=== PATIENT | male | born 1955 | race Caucasian/White ===

== ENCOUNTER 2020-03-08 08:50 | Inpatient (IN) | payer MEDICARE, BC, SELFPAY ==
[2020-03-08] VITALS (98 sets, daily range): BP systolic 113–188; BP diastolic 74–115; PULSE 68–93; RESP 12–30; TEMP 36.8; O2SAT 85–100; BMI 33.6
--- NOTE | 2020-03-08 08:59 | ECG_ITS ---
[facility] Test Date: 2020-03-08 Pat Name: Thiago Perez Department: Room: 104 Gender: Male Bun Icer: : 1955 Requested By: Radha Chacko Order Number: [id number] Jarred MD: Yahir Ansari M.D. Measurements Intervals [place] Rate: 77 P: 50 VT: 194 QRS: 3 QRSD: 85 T: 55 QT: 373 QTc: 422 Interpretive Statements SINUS RHYTHM WITH OCCASIONAL VENTRICULAR PREMATURE COMPLEXES ANTERIOR MYOCARDIAL INFARCTION , POSSIBLY ACUTE [40+ ms Q WAVE AND/OR ST/T ABNORMALITY IN V3/V4] INFERIOR MYOCARDIAL INFARCTION , OF INDETERMINATE AGE [40+ ms Q WAVE AND/OR ST/T ABNORMALITY IN II/aVF] ACUTE [place] No previous ECG available for comparison Electronically Signed On 03-08-2020 17:32:30 CDT by Yahir Ansari M.D. [id number] f
--- NOTE | 2020-03-08 08:59 | XR_ITS ---
WS: [id number] XR chest 1V portable [id number] REASON FOR EXAM: Chest pain FINDINGS: The heart and mediastinum are within normal limits with minimal calcification of the aortic arch. The lung gann are clear and well aerated. No significant abnormality of the bony thorax is identified. XR/XR chest 1V portable [id number] IMPRESSION: No acute chest abnormality identified.
[2020-03-08] MEDS: heparin 5,000 unit/mL INJ 1 mL 4000 UNIT IVP (09:05)
[2020-03-08 09:07] LABS: Basophils % 0.3 %; Eosinophils # 0.1 10^3/uL (0.0-0.8); Eosinophils % 1.5 %; Hematocrit 46.8 % (42.0-52.0); Hemoglobin 15.3 g/dL (11.7-16.6); Lymphocytes # 1.9 10^3/uL (0.8-4.8); Lymphocytes % 25.4 %; Mean Corpuscular HGB Conc 32.7 g/dL (30.0-36.0); Mean Corpuscular Hemoglobin 26.2 pg (28.0-34.0); Mean Corpuscular Volume 80.1 fL (80-94); Mean Platelet Volume 10.5 fL (7.4-10.4); Monocytes # 0.8 10^3/uL (0.2-0.9); Monocytes % 10.9 %; Neutrophils # 4.52 10^3/uL (1.8-7.7); Neutrophils % 61.6 %; Nucleated Red Blood Cells % 0 %; Platelet Count 237 10^3/cmm (130-400); Red Blood Count 5.84 10^6/uL (4.1-5.3); Red Cell Distribution Width 13.2 % (12.1-15.1); White Blood Count 7.3 10^3/uL (4.0-10.0)
[2020-03-08] MEDS: nitroglycerin drip 50 MG/250 ML PREMIX IV (09:08)
[2020-03-08] MEDS: morphine 4 mg/mL SDV 1 mL IVP ×2 (09:08→09:30)
[2020-03-08] MEDS: clopidogrel 300 mg Tablet 600 MG PO (09:10)
--- NOTE | 2020-03-08 09:18 | XACV_ITS ---
Ht: 170 cm Wt: 100 kg BSA: 2.21 m2 Gender: Male : 1955 Any Known Allergies: Penicillins Exam Priority: Routine Procedure(s): Procedure Description: Diagnostic procedure Procedure Description: PCI procedure Procedure Description: Left Heart Catheterization Procedure Description: Drug Eluting Coronary Stent Procedure Description: PTCA Procedure Description: Coronary Angiography Diagnostic Cath Status: Emergency Diagnostic Findings * Proximal Left Anterior Descending Coronary Artery: 100% thrombotic occlusion, YUMI: 0 flow. * LM has 0% stenosis. * CX has 0% stenosis. * RCA has 0% stenosis. * Coronary angiography shows right dominance. PCI Status: Emergency PCI Indication: STEMI - Immediate PCI for STEMI Interventional Findings * We engaged the left main artery using XB 3.5 guide catheter. 0.014 run-through guidewire was used to cross the occluded segment and was placed on distalLAD. We then predilated the stenosis using a 2.5 x 12 mm semi-compliant balloon. This was followed by placement of 3.0 into 12 mm resolute Mele drug-eluting stent. We postdilated the stent using a 3.25 x 8 mm NC balloon. At this time final angiogram was performed that showed YUMI-3 flow, excellent expansion of the stent and no residual stenosis. At this time guidewire and guide catheter were removed. He left the Self Pay Collector in a stable condition.. * Proximal Left Anterior Descending Coronary Artery: 100% stenosis treated with AB TREK 2.50X12 RX BALLOON, YA Jernigan MELE 3.0X15 SALUD, and YA AZAR EUPHORA RX 3.51I99UE BALLOON. 0% residual stenosis, YUMI: 3 flow. Conclusions 1. Total thrombotic occlusion of proximal LAD with one vessel disease. 2. Proximal Left Anterior Descending Coronary Artery was treated with two Balloon and Drug Eluting Stent. Recommendations * Admit to stepdown unit. * Aggrastat for 4 hours. * Continue aspirin and Plavix for at least 1 year. * High intensity statin therapy. * Lisinopril and beta-trudy therapy. * Order echocardiogram. * Cardiac rehab. Interventional RX Recommendation: PCI w/o planned CABG Diagnostic RX Recommendation: PCI w/o planned CABG Anticoagulation: Heparin Pressures Phase:Rest AO : 145 / 87 ( 114 ) @ 4:44:00 AM 152 / 92 ( 120 ) @ 4:48:00 AM 119 / 67 ( 98 ) @ 4:54:00 AM 133 / 80 ( 106 ) @ 4:55:00 AM 129 / 69 ( 95 ) @ 4:56:00 AM 92 / 53 ( 72 ) @ 5:01:00 AM 115 / 75 ( 93 ) @ 5:07:00 AM 140 / 79 ( 106 ) @ 5:10:00 AM 137 / 78 ( 97 ) @ 5:10:00 AM LV : 153 / -2 / @ 5:10:00 AM 153 / -2 / @ 5:10:00 AM Valves Phase:DefaultPhase AV : 13.0 @ 10:17:07 AM AV Mean Gradient: 22.0 @ 10:17:07 AM Clinical Evaluation EBL: 5mL-10mL Procedural Details Pre-Procedure Time Out. Identified patient by full name and date of as verbalized by the patient/guarantor. Does the consent match the physician's order: N/A Emergent; Informed Consent not obtained due to time critical life threat. Accurate & Complete Informed Consent: N/A Emergent; Informed Consent not obtained due to time critical life threat. Inpatient/Outpatient History & Physical on Chart: N/A Emergent; Informed Consent not obtained due to time critical life threat. If H&P is completed, is and addenduem needed: N/A Emergent; Informed Consent not obtained due to time critical life threat; If yes, is the addendum complete: N/A Emergent; Informed Consent not obtained due to time critical life threat. Visualize and Verify Site with Patient/Guarantor: N/A. Relevant Radiology Images available: N/A Emergent; Informed Consent not obtained due to time critical life threat. Pre-op teaching completed and patient verbalized understanding. The risks, benefits, and alternatives of sedation and/or procedure were discussed by physician. The patient agrees to continue. Procedure started. PERRLA. Strong, equal hand teleservices representative bilaterally. Lungs clear x 5 lobes. IV Fluids: 0.9% NaCl at KVO. 0 mL infused prior to radiographer cardiac catheterization. Oxygen started at 2liters/min via nasal canula. bilateral groins was prepped with chloroprep then draped in the usual sterile fashion. Physician notified. Baseline sample Acquired. HR: 127 BPM. Equipment: 6F - Femoral. Cardiac Cath Pack. ACIST Manifold Kit Model BT 2000. Heparinized Saline (2 units/mL), 1000 mL bag. Kit, Micropuncture. Physician arrived. Physician scrubbed in. Immediate Pre-Procedure Time Out. Correct Patient: Yes; Correct Procedure: Yes; Correct Site: Yes; Correct Patient Position: Yes; Correct Supplies: Yes; Dried Flammable Prep: Yes; Blood Products Available: No;. Lidocaine 1% infiltrated to the left groin. Arterial access obtained with micropuncture set. 6 [place] XB 3.5 guide catheter was inserted over the wire. Multiple views taken of left coronary artery. Runthrough guidewire was advanced through the guide catheter to lesion in the prox LAD. Inflation number : 1 A AB TREK 2.50X12 RX BALLOON was prepped and advanced across the Prox LAD , then inflated to 8 PROSPER for 0:13 seconds. Inflation number: 2 The AB TREK 2.50X12 RX BALLOON was reinflated across the Prox LAD, to 8 PROSPER for 0:07 seconds. Balloon out. Inflation Number : 3 A YA Jernigan MELE 3.0X15 SALUD -Lot Number#[id number] EXP 11-19-2021 was prepped and advanced across the Prox LAD. The stent was deployed at 12 PROSPER for 0:19 seconds. Stent balloon out over wire. Results checked. Patient's family updated. Inflation number : 4 A YA AZAR EUPHORA RX [id number] BALLOON was prepped and advanced across the Prox LAD , then inflated to 16 PROSPER for 0:12 seconds. Inflation number: 5 The MDT NC EUPHORA RX 3.86M81HD BALLOON was reinflated across the Prox LAD, to 16 PROSPER for 0:20 seconds. Balloon out. Wire out. Guide catheter out. A 5 [place] JR4 catheter in over wire. Multiple views taken of right coronary artery. EDP Sample taken: LV 153/-3,20; HR: 85 BPM; SpO2: 96%. Pullback taken: LV 153/-3,20; AO 140/79(106); Mean: 22mmHg, Peak to Peak: 13mmHg, SEP: 7sec/min; HR: 81 BPM; SpO2: 98%. Catheter out. A Suture was successful obtaining hemostatsis at the Left Femoral artery insertion site. Sheath(s) sutured into position with 2-0 silk and sterile 4x4's and Op-site applied over the site. No oozing or signs and symptoms of hematoma noted. Arterial sheath flushed and connected to tranducer and pressure bag with heparinized saline. PERRLA. Strong, equal hand teleservices representative bilaterally. No VTE prophylaxis required. Fluoro: 10:20. Contrast type used: Omnipaque 300 mgI/mL, 500 mL bottle. [id number]. Post-op diagnosis: STEMI. Complications: none. Estimated blood loss: 5mL-10mL. Procedure completed. Patient transferred by bed to CPRU. PCI Indication: STEMI. [facility] Clinical Fraility Score: 2: Well. Self Pay Collector Indications: ACS <= 24 hours. Chest Pain Symptom Assessment: Typical Angina Symptoms. Cardiovascular Instability: No. Medication's Wasted: Lidocaine 1% = 10 mL. Medication's Wasted: Heparin = 2000 units. Total IV fluids: 200 mL. Vital chart was stopped. Access Site Site: Left Femoral artery Sheath Size: 6 Fr Hemostasis Method: Suture Hemostasis Success: Successful Procedure Medications Start: 9:39 AM Stop: 9:39 AM Medication: Versed Amount: 1 mg Route: I.V. Start: 9:39 AM Stop: 9:39 AM Medication: Fentanyl Amount: 50 mcg Route: I.V. Start: 9:40 AM Stop: 9:40 AM Medication: Versed Amount: 1 mg Route: I.V. Start: 9:43 AM Stop: 9:43 AM Medication: Heparin Amount: 5000 units Route: I.V. Start: 9:43 AM Stop: 9:43 AM Medication: Fentanyl Amount: 50 mcg Route: I.V. Start: 9:52 AM Stop: 9:52 AM Medication: Heparin Amount: 2000 units Route: I.V. Start: 9:57 AM Stop: 9:57 AM Medication: 0.9% Saline Amount: 100 ml Route: I.V. bolus Start: 10:00 AM Stop: 10:00 AM Medication: Aggrastat 12.5 mg/250 mL Amount: 50 ml Route: I.V. bolus Start: 10:03 AM Stop: 10:03 AM Medication: Aggrastat 12.5 mg/250 mL Amount: 18 ml/hr Route: I.VDalila kwan I, the attending physician, have reviewed and verified all procedure medications. Yes, all medications given per verbal order Report Signatures Finalized by Yahir Ansari MD on 03/12/2020 06:00 PM
--- NOTE | 2020-03-08 09:20 | ED_ITS ---
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 In talking to him further he has had different varying episodes of less intensity over the last 5 days. Including one episode that lasted for 5 hours. Today the intensity was much greater he rates the pain at an 8-9 of 10 at its worst after immediate interventions when we first seen him it was down to a 6. He did take an aspirin prior to arrival he has acute ST elevation changes on his initial EKG and a STEMI alert was immediately called. Patient denies being diabetic he has no history of hypertension or hyperlipidemia he is not on any regular prescription medications he is not recently been ill. No diarrhea no sinus congestion cough shortness of breath wheezing he is not been around anyone he is aware of that as it COVID. MD complaint: chest pain Onset (ago): minute(s) (This episode began this morning about an hour to an hour and a half before arrival.) Timing of current episode: constant Prior episodes: Yes Onset: during exertion Pain location: substernal Pain radiation: right arm and left arm Severity: moderate Associated symptoms: Reports diaphoresis, dyspnea, leg edema, nausea and sense of impending doom; Deny abdominal pain, fever(s), palpitations or vomiting Treatment prior to arrival: none Review of Systems Const: Reports: diaphoresis; Denies: fever(s) ENMT: Denies: throat pain, ear or mastoid pain, nasal discharge or nasal congestion Card: Denies: palpitations Resp: Reports: dyspnea GI: Reports: nausea; Denies: abdominal pain or vomiting : Denies: flank pain, dysuria, urinary frequency or urinary urgency Skin/Breast: Denies: rash or pruritus [facility] ED PFSH: Medical History No significant past medical history Surgical History H/O umbilical hernia repair Physical Exam Const: COMMON NORMALS: no acute distress GENERAL APPEARANCE: cooperative and comfortable ORIENTATION/CONSCIOUSNESS: Yes awake, Yes oriented to person, Yes oriented to place and Yes oriented to time HENMT: COMMON NORMALS: normocephalic, atraumatic and hearing grossly normal bilaterally HEAD & SCALP: normocephalic and atraumatic Eye: COMMON NORMALS: Equal, round and reactive pupils present, EOMs intact bilaterally, conjunctivae normal and no scleral icterus CONJUNCTIVA: Yes conjunctivae normal PUPIL: Yes Equal, round and reactive pupils present Neck/C-Spine: COMMON NORMALS: full ROM, no lymphadenopathy, supple and no JVD Lymph: LYMPHATIC: no lymphadenopathy noted and no lymphedema noted Resp: COMMON NORMALS: normal respiratory effort, No retractions and No use of accessory muscles AUSCULTATION: crackles Laterality: bilateral (Bases) and posterior Cardio: COMMON NORMALS: no JVD, regular rate, regular rhythm and No murmurs present (Cardio) RATE: regular rate RHYTHM: regular rhythm GI: COMMON NORMALS: Soft to palpation and No hepatosplenomegaly present AUSCULTATION: Yes normoactive bowel sounds PALPATION: Yes Soft to palpation, No Tenderness to palpation present (GI), No Guarding due to palpation present (GI) and Yes No hepatosplenomegaly present Extremity: COMMON NORMALS: normal to inspection, capillary refill normal, no calf tenderness and no pedal edema GENERAL: Yes edema (Mild lower extremity) Neuro: SENSORIUM/ORIENTATION: Yes oriented to person, Yes oriented to place and Yes oriented to time Skin: COMMON NORMALS: no rashes or lesions noted GENERAL SKIN EXAM: no rashes or lesions noted Course Vital Signs: Vital signs: Vital Signs Temperature 98.5 F 03/09/20 07:28 Pulse Rate 79 03/09/20 07:28 Respiratory Rate 21 H 03/09/20 07:28 Blood Pressure 145/87 03/09/20 07:28 Pulse Oximetry 93 03/09/20 07:28 MDM - Chest Pain MDM Narrative: Medical decision making narrative: EKG on arrival shows anterior lateral ST elevation DC. There is a few small inferior changes but not significant. Patient was given morphine heparin Plavix he previously taken aspirin and started on IV nitro drip and also her oxygen was applied. Dr. Ansari was in a case when the STEMI was called the EKG was brought to him at the bedside he reviewed it and agreed that it was a STEMI we had already initiated medications listed above and prepped for the Support Team Member. While we were still finishing our prep Dr. Ansari was able to come to the bedside and discussed the procedure with the patient. Lab Data: Labs: Lab Results 03/08/20 03/08/20 03/08/20 Range/Units 09:00 09:00 09:00 WBC 7.3 (4.0-10.0) 10^3/ uL RBC 5.84 H (4.1-5.3) 10^6/u L Hgb 15.3 (11.7-16.6) g/dL Hct 46.8 (42.0-52.0) % MCV 80.1 (80-94) fL MCH 26.2 L (28.0-34.0) pg MCHC 32.7 (30.0-36.0) g/dL RDW 13.2 (12.1-15.1) % Plt Count 237 (130-400) 10^3/c mm MPV 10.5 H (7.4-10.4) fL Neut % (Auto) 61.6 % Lymph % (Auto) 25.4 % Branch % (Auto) 10.9 % Eos % (Auto) 1.5 % Baso % (Auto) 0.3 % Neut # (Auto) 4.52 (1.8-7.7) 10^3/u L Lymph # (Auto) 1.9 (0.8-4.8) 10^3/u L Branch # (Auto) 0.8 (0.2-0.9) 10^3/u L Eos # (Auto) 0.1 (0.0-0.8) 10^3/u L Baso # (Auto) 0.0 (0.0-0.1) 10^3/u L Nucleated RBC % (a uto) 0 % Nucleated RBCs # 0.0 /100WBC PT 12.20 (12.1-14.9) SECO NDS INR 0.88 (0.8-1.2) APTT 26.0 (23.9-36.7) SECO NDS Sodium 139 (136-145) mmol/L Potassium 4.2 (3.5-5.1) mmol/L Chloride 104 (98-107) mmol/L Carbon Dioxide 24 (22-29) mmol/L Anion Gap 15.2 (5-19) BUN 15 (8-23) mg/dL Creatinine 1.0 (0.7-1.2) mg/dL GFR Calculation 75.0 L (90-130) mL/min Glucose 143 H (65-115) mg/dL Calculated Osmolal ity 291 (285-295) mOsm/k g Calcium 9.6 (8.5-10.5) mg/dL Total Bilirubin 0.7 (0.15-1.2) mg/dL AST 27 (0-40) U/L ALT 34 (0-41) U/L Alkaline Phosphata se 97 (40-130) IU/L Troponin T Baselin e (0-15) ng/L NT-Pro-B Natriuret Pep 97 (0-125) pg/mL Total Protein 7.2 (6.6-8.7) g/dL Albumin 4.5 (3.5-5.2) g/dL Globulin 2.7 (1.3-4.6) g/dL 03/08/20 Range/Units 09:00 WBC (4.0-10.0) 10^3/ uL RBC (4.1-5.3) 10^6/u L Hgb (11.7-16.6) g/dL Hct (42.0-52.0) % MCV (80-94) fL MCH (28.0-34.0) pg MCHC (30.0-36.0) g/dL RDW (12.1-15.1) % Plt Count (130-400) 10^3/c mm MPV (7.4-10.4) fL Neut % (Auto) % Lymph % (Auto) % Branch % (Auto) % Eos % (Auto) % Baso % (Auto) % Neut # (Auto) (1.8-7.7) 10^3/u L Lymph # (Auto) (0.8-4.8) 10^3/u L Branch # (Auto) (0.2-0.9) 10^3/u L Eos # (Auto) (0.0-0.8) 10^3/u L Baso # (Auto) (0.0-0.1) 10^3/u L Nucleated RBC % (a uto) % Nucleated RBCs # /100WBC PT (12.1-14.9) SECO NDS INR (0.8-1.2) APTT (23.9-36.7) SECO NDS Sodium (136-145) mmol/L Potassium (3.5-5.1) mmol/L Chloride (98-107) mmol/L Carbon Dioxide (22-29) mmol/L Anion Gap (5-19) BUN (8-23) mg/dL Creatinine (0.7-1.2) mg/dL GFR Calculation (90-130) mL/min Glucose (65-115) mg/dL Calculated Osmolal ity (285-295) mOsm/k g Calcium (8.5-10.5) mg/dL Total Bilirubin (0.15-1.2) mg/dL AST (0-40) U/L ALT (0-41) U/L Alkaline Phosphata se (40-130) IU/L Troponin T Baselin e 132 H* (0-15) ng/L NT-Pro-B Natriuret Pep (0-125) pg/mL Total Protein (6.6-8.7) g/dL Albumin (3.5-5.2) g/dL Globulin (1.3-4.6) g/dL Discharge Plan Discharge Patient Disposition: Admitted As Inpatient Admit Provider: Yahir Ansari Clinical Impression: ST elevation myocardial infarction (STEMI) Condition: Stable Discharge Date/Time: 03/08/20 09:38 Coding Level of Care Code ED Dialer for Markos Fwd Exam Comprehensive
[2020-03-08 09:21] LABS: INR 0.88 (0.8-1.2)
[2020-03-08 09:31] LABS: Troponin(5th) Baseline 132 ng/L (0-15)
[2020-03-08 09:34] LABS: Alanine Aminotransferase 34 U/L (0-41); Albumin Level 4.5 g/dL (3.5-5.2); Alkaline Phosphatase 97 IU/L (40-130); Anion Gap 15.2 (5-19); Aspartate Amino Transferase 27 U/L (0-40); Blood Urea Nitrogen 15 mg/dL (8-23); Calcium 9.6 mg/dL (8.5-10.5); Carbon Dioxide 24 mmol/L (22-29); Chloride 104 mmol/L (98-107); Globulin 2.7 g/dL (1.3-4.6); Glucose 143 mg/dL (65-115); NT Pro B Type Natriuretic Pept 97 pg/mL (0-125); Osmolality Calculated 291 mOsm/kg (285-295); Potassium 4.2 mmol/L (3.5-5.1); Sodium 139 mmol/L (136-145); Total Bilirubin 0.7 mg/dL (0.15-1.2); Total Protein 7.2 g/dL (6.6-8.7)
--- NOTE | 2020-03-08 09:35 | PM.HP ---
Providers/Chief Complaint Admitting Physician: Yahir Ansari MD Primary Care Provider: Romie Rboles MD Chief Complaint: CHEST PAIN, PAIN DOWN R ARM History of Present Illness Thiago Perez is a 64 year old male with no significant past medical history and not on any medications presented to emergency room with 2 to 3 hours of chest pain. 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 It was substernal pressure. Intensity was 8/10. There was radiation to left arm. He also complained of shortness of breath associated with chest pain. He took aspirin before coming to hospital. No aggravating or relieving factors were noted. According to the patient for the last 5 days he has been having on and off chest discomfort including one episode which lasted for about 5 hours a few days ago. His mom recently and he was very stressed because of that. Patient denies smoking. EKG performed in the hospital showed ST elevations in the anterior and anterolateral leads. STEMI alert was activated and patient was emergently taken to the Astrophysics Professor. Patient was loaded with Plavix and heparin bolus. Cardiac cath showed thrombotic occlusion of proximal LAD and he underwent successful revascularization with drug-eluting stent x1. Patient has no documented history of hypertension however his blood pressure was significantly high. Review of Systems Narrative: CONSTITUTIONAL: No fever chills weight loss or gain or night sweats. [] HEENT: Normocephalic, atraumatic.[] RESPIRATORY: No cough, sputum, hemoptysis or wheezing.[] CARDIOVASCULAR: Severe chest pain and shortness of breath, PND, orthopnea, no lower extremity edema, presyncope or syncope. [] GI: no nausea vomiting diarrhea. [] MANAGER USER INTERFACE: No numbness, tingling, weakness or loss of function in any part of the body. [] MUSCULOSKELETAL: No knee or joint pain or rashes. [] Medications/Allergies Allergies Allergy/AdvReac Type Severity Reaction Status Date / Time Penicillins Allergy Unknown Verified 03/08/20 09:03 PFSH Acute PFSH: Medical History No significant past medical history Surgical History H/O umbilical hernia repair Vitals/I&O/Wt Last Vital Signs Pulse 85 03/08/20 08:54 Resp 15 03/08/20 09:08 BP 188/115 03/08/20 08:54 Pulse Ox 99 03/08/20 09:08 Weight last 48 hrs Weight 215 lb Physical Exam Narrative: EXAM NARRATIVE: GENERAL: Patient is alert, awake and oriented x3. [] NECK: No jugular vein distension. [] HEENT: No cyanosis. No icterus. No pallor. [] HEART: Regular S1 and S2. No murmur, rub or gallop. [] LUNGS: Mild crackles in the bases. [] ABDOMEN: Soft, nontender and nondistended. Positive bowel sounds. No guarding, rebound or tenderness. [] CENTRAL NERVOUS SYSTEM: Grossly nonfocal. [] EXTREMITIES: Lower extremities with no edema bilaterally. Pulses palpable in the lower extremities, both dorsalis pedis and posterior tibial. [] Data : 03/08/20 09:00 03/08/20 09:00 A&P Assessment and plan (1) ST elevation myocardial infarction (STEMI): Status: Acute (2) Hypertension: Status: Acute Patient had acute anterior wall ST elevation [place]. He is status post successful revascularization with drug-eluting stent x1 to proximal LAD. Transfer to cardiac stepdown unit Continue aspirin and Plavix. Aggrastat drip for 4 hours. Order echocardiogram. High intensity statin therapy. We will initiate beta-trudy and BETTY inhibitor today. Cardiac rehab referral. Attestations Medical Necessity Statement*: Care expected to cross 2 midnights. Patient is status post acute ST elevation myocardial infarction and revascularization with drug-eluting stent x1. Coding Level of Care Code Acute Scroll Machine Operator for Markos Moffett Diagnoses ST elevation myocardial infarction (STEMI) I21.3 Hypertension I10
--- NOTE | 2020-03-08 10:59 | ECG_ITS ---
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 Measurements Intervals [place] Rate: 76 P: 51 MT: 188 QRS: 1 QRSD: 103 T: 49 QT: 371 QTc: 418 Interpretive Statements SINUS RHYTHM ANTERIOR MYOCARDIAL INFARCTION , POSSIBLY ACUTE [40+ ms Q WAVE AND/OR ST/T ABNORMALITY IN V3/V4] INFERIOR MYOCARDIAL INFARCTION , OF INDETERMINATE AGE [40+ ms Q WAVE AND/OR ST/T ABNORMALITY IN II/aVF] ACUTE [place] Compared to ECG 03/08/2020 08:56:22 Ventricular premature complex(es) no longer present Myocardial infarct finding still present Electronically Signed On 03-08-2020 17:46:06 CDT by Yahir Ansari M.D. [id number]
--- NOTE | 2020-03-08 11:18 | USCV_ITS ---
Thiago Perez Age: 64 Gender: M : 1955 Exam Date: 03/08/2020 14:20 Ordering Phys: Yahir Ansari M.D ([email or web address]) Technologist: Dex Sanchez [place] [facility] [place]: post stemi BP: 133 / 82 HR: 79 Rhythm: Sinus Technical Quality: Adequate MEASUREMENTS (Male / Female) Normal Values 2D ECHO LV Diastolic Diameter PLAX 4.5 cm 4.2 - 5.9 / 3.9 - 5.3 cm LV Systolic Diameter PLAX 3.0 cm IVS Diastolic Thickness 0.9 cm 0.6 - 1.0 / 0.6 - 0.9 cm IVS Systolic Thickness 1.3 cm LVPW Diastolic Thickness 1.4 cm 0.6 - 1.0 / 0.6 - 0.9 cm LVPW Systolic Thickness 1.4 cm LVOT Diameter 2.0 cm LV Ejection Fraction 2D Teich 60.8 % LV Ejection Fraction MOD 2C 60.3 % LV Ejection Fraction 2C AL 60.7 % LA Diameter 3.6 cm M-MODE LV Diastolic Diameter MM 5.9 cm 4.2 - 5.9 / 3.9 - 5.3 cm LV Systolic Diameter MM 4.1 cm LV Ejection Fraction MM Teich 58.8 % IVS Diastolic Thickness MM 1.0 cm 0.6 - 1.0 / 0.6 - 0.9 cm IVS Systolic Thickness MM 1.6 cm LVPW Diastolic Thickness MM 1.2 cm 0.6 - 1.0 / 0.6 - 0.9 cm LVPW Systolic Thickness MM 1.6 cm RV Diastolic Diameter MM 1.4 cm Aortic Annulus Diameter 3.9 cm LA Ao Ratio MM 0.9 MV E Point Septal Separation 0.6 cm DOPPLER AV Peak Velocity 130.0 cm/s LVOT Peak Velocity 83.0 cm/s AV Area Cont Eq vti 2.0 cm squared AV Area Cont Eq pk 2.1 cm squared MV Area PHT 5.0 cm squared Mitral E to A Ratio 1.0 MV E' Velocity 33.5 cm/s Mitral E to MV E' Ratio 12.2 Mitral E to LV E' Lateral Ratio 10.9 Mitral E to LV E' Septal Ratio 14.2 TR Peak Velocity 130.0 cm/s TR Peak Gradient 6.8 mmHg TV Peak E Velocity 58.0 cm/s Right Atrial Pressure 3.0 mmHg Pulmonary Artery Systolic Pressu 9.8 mmHg PV Peak Velocity 141.0 cm/s FINDINGS Left Ventricle Normal left ventricular size and wall thickness. LV systolic function is mildly reduced with EF of 40 to 45%. Mid to apical anteroseptal wall has mild to moderate hypokinesis. Apical wall is severely hypokinetic. Anterior, apical inferior and inferoseptal irving have mild hypokinesis. Normal left ventricular wall thickness. Diastolic function is abnormal. Right Ventricle The right ventricle is normal in size and function. Right Atrium The right atrium is normal in size. Left Atrium The left atrium is normal in size. Mitral Valve Structurally normal mitral valve without significant stenosis or prolapse. There is no mitral regurgitation. Aortic Valve Aortic valve is not well visualized. However no difficult stenosis or regurgitation is noted. Tricuspid Valve Not well visualized however no significant regurgitation.. Insufficient TR jet to calculate RVSP. Pulmonic Valve Not well visualized. No significant stenosis or regurgitation is noted. Pericardium Normal pericardium without effusion. Aorta Normal ascending aorta dimension. CONCLUSIONS LV systolic function is mildly reduced with EF of 40 to 45% with above-mentioned wall motion abnormalities. His diastolic function is abnormal. Yahir Ansari MD (Electronically Signed) Final Date: 08 March 2020 18:29 S
--- NOTE | 2020-03-08 11:20 | PC.NURSE ---
Patient to floor from dental laboratory assistant at 1030. 2 nurse verification of insertion site to left groin, asymptomatic, connected to pressure bag. Neurovascular assessment WNL. Patient denies any chest pain at this time. Nitro gtt running at 15 mcgs/min, aggrastat running at 18 ml/hr. Patient educated on activity restrictions and oriented to room and call light, verbalized understanding. No further needs identified at this time. Nurse to continue to monitor. Dr. Ansari contacted via telephone to clarify med orders at 1100. Physician gave order to discontinue nitro gtt. No post cath fluids. Continue aggrastat for 4 hours, discontinue at 1400. Give 25 mg metoprolol now and 5 mg lisinopril now. RBTO. Nurse to continue to monitor.
[2020-03-08] MEDS: metoprolol tartrate 25 mg Tablet PO ×2 (11:43→17:20)
[2020-03-08] MEDS: lisinopril 5 mg Tablet PO (11:43)
[2020-03-08 13:30] LABS: Troponin 5 2HR 7891 ng/L (0-15); Troponin 5 2HR Delta 7759 ABS# (0-10)
--- NOTE | 2020-03-08 13:56 | PC.NURSE ---
Dr. Ansari notified that ptt is 124. Physician gave verbal order to recheck PTT in 2 hours. If less than 45, pull sheath. RBVO. Aggrastat gtt discontinued now.
--- NOTE | 2020-03-08 14:28 | ECG_ITS ---
[facility] Test Date: 2020-03-08 Pat Name: Thiago Perez Department: Room: 104 Gender: Male Fraternity Adviser: : 1955 Requested By: Yahir Ansari Order Number: [id number] Jarred MD: Yahir Ansari M.D. Measurements Intervals [place] Rate: 76 P: 48 NE: 181 QRS: -1 QRSD: 107 T: 53 QT: 398 QTc: 449 Interpretive Statements SINUS RHYTHM ANTERIOR MYOCARDIAL INFARCTION [40+ ms Q WAVE AND/OR ST/T ABNORMALITY IN V3/V4], OF INDETERMINATE AGE INFERIOR MYOCARDIAL INFARCTION [40+ ms Q WAVE AND/OR ST/T ABNORMALITY IN II/aVF], OF INDETERMINATE AGE Compared to ECG 03/08/2020 09:01:01 No significant changes Electronically Signed On 03-08-2020 17:35:53 CDT by Yahir Ansari M.D. [id number]
--- NOTE | 2020-03-08 14:30 | PC.NURSE ---
Dr. Ansari notified that patient is projectile vomiting, approximately 600 ml of undigested food and gastric juices. Patient denies chest pain or shortness of breath. telephone order received to obtain 12 lead EKG stat, administer 4 mg zofran IVP now once and benadryl [address] prn zofran order 2 mg q4hour prn for nausea. RBTO. nurse to continue to monitor.
[2020-03-08] MEDS: diphenhydrAMINE 50 mg/mL SDV 1mL 25 MG IVP (14:41)
[2020-03-08] MEDS: ondansetron 2 mg/ML SDV 2 mL 4 MG IVP (14:42)
[2020-03-08] MEDS: perflutren protein-a microsphr 0.22 mg/mL SDV 3 mL IV (14:45)
[2020-03-08 16:46] LABS: Troponin 5 6HR 8687 ng/L (0-15); Troponin 5 6HR Delta 8555 ng/L (0-12)
--- NOTE | 2020-03-08 17:11 | PC.NURSE ---
Nurse checked with lab regarding timed PTT, no result at this time. Nurse to continue to monitor.
[2020-03-08 17:17] LABS: Partial Thromboplastin Time 37.5 SECONDS (23.9-36.7)
[2020-03-08] MEDS: ondansetron 2 mg/ML SDV 2 mL IVP (17:52)
[2020-03-08] MEDS: fentaNYL 50 mcg/mL INJ 2mL IVP (18:03)
--- NOTE | 2020-03-08 19:14 | PC.NURSE ---
Sheath pulled at 1811 per protocol. Direct pressure held for 20 minutes until hemostasis was achieved. Incision asymptomatic, no hematoma noted. Dressing applied, Nurse to continue to monitor.
--- NOTE | 2020-03-08 19:29 | PC.NURSE ---
ROunding: Patient resting in bed watching TV. Patient R groin dressing is clean dry and intact. No hematoma noted. Patient denies any pain at this time and is alert and oriented.
[2020-03-08] MEDS: atorvastatin 40 mg Tablet 80 MG PO (20:04)
[2020-03-08] MEDS: temazepam 15 mg Capsule PO (22:22)
[2020-03-09] VITALS (7 sets, daily range): BP systolic 96–145; BP diastolic 64–90; PULSE 74–79; RESP 17–25; TEMP 36.7–36.9; O2SAT 93–95
--- NOTE | 2020-03-09 04:51 | ECG_ITS ---
[facility] Test Date: 2020-03-09 Pat Name: Thiago Perez Department: Room: 104 Gender: Male Billet Examiner: : 1955 Requested By: Yahir Ansari Order Number: [id number] Jarred MD: Berlin Herring M.D. Measurements Intervals [place] Rate: 79 P: 45 CO: 197 QRS: 21 QRSD: 92 T: 93 QT: 396 QTc: 455 Interpretive Statements SINUS RHYTHM ANTEROSEPTAL MYOCARDIAL INFARCTION [40+ ms Q WAVE IN V1-V4], PROBABLY RECENT ACUTE [place] Compared to ECG 03/08/2020 14:47:43 No significant changes Electronically Signed On 03-10-2020 21:37:08 CDT by Berlin Herring M.D. [id number]
[2020-03-09 04:56] LABS: Basophils % 0.2 %; Eosinophils % 0.4 %; Hematocrit 44.8 % (42.0-52.0); Hemoglobin 14.3 g/dL (11.7-16.6); Lymphocytes # 1.4 10^3/uL (0.8-4.8); Lymphocytes % 15.2 %; Mean Corpuscular HGB Conc 31.9 g/dL (30.0-36.0); Mean Corpuscular Hemoglobin 25.8 pg (28.0-34.0); Mean Corpuscular Volume 80.7 fL (80-94); Mean Platelet Volume 11.1 fL (7.4-10.4); Neutrophils # 6.55 10^3/uL (1.8-7.7); Neutrophils % 72.8 %; Nucleated Red Blood Cells % 0 %; Platelet Count 233 10^3/cmm (130-400); Red Blood Count 5.55 10^6/uL (4.1-5.3); Red Cell Distribution Width 13.3 % (12.1-15.1)
[2020-03-09 05:22] LABS: Anion Gap 14.1 (5-19); Blood Urea Nitrogen 18 mg/dL (8-23); Calcium 9.4 mg/dL (8.5-10.5); Carbon Dioxide 26 mmol/L (22-29); Chloride 101 mmol/L (98-107); Glucose 113 mg/dL (65-115); Osmolality Calculated 287 mOsm/kg (285-295); Potassium 4.1 mmol/L (3.5-5.1); Sodium 137 mmol/L (136-145)
--- NOTE | 2020-03-09 05:26 | PC.NURSE ---
EKG obtained for rhythm verification. Consulted Dr. Herring about EKG and previous EKG's. Patient is chest pain free at this time. Vitals are stable. No new orders received at this time.
--- NOTE | 2020-03-09 05:58 | PC.NURSE ---
End of shift: Patient R groin is clean dry and intact. No hematoma. Patient remains alert and oriented. Patient is pain free at this time. Denies any further needs at this time.
--- NOTE | 2020-03-09 07:15 | PC.NURSE ---
Patient sitting on side of bed at time of assessment. Patient denies any chest pain or shortness of breath overnight. Incision to left groin asymptomatic, dressing CDI. No needs identified at this time. Nurse to continue to monitor.
[2020-03-09] MEDS: aspirin 81 mg EC Tablet PO (08:47)
[2020-03-09] MEDS: lisinopril 5 mg Tablet PO (08:48)
[2020-03-09] MEDS: clopidogrel 75 mg Tablet PO (08:48)
[2020-03-09] MEDS: pneumococcal (23 valent) SDV 0.5 mL IM (08:50)
[2020-03-09] MEDS: metoprolol tartrate 25 mg Tablet PO ×2 (08:50→17:06)
--- NOTE | 2020-03-09 09:39 | PC.CHAP ---
Pastoral Care Encounter/Spiritual Assessment Type of Contact [] Declined asset protection specialist visit [] Patient/Family/Request visit [] Outpatient visit [] Follow-up visit [] Physician referral [] Code/Alert [x] Routine visit [] Staff referral [] Actively dying [] Patient sleeping [] Family support [] [] Out of room [] Palliative care [] [] Receiving care in room [] Pre-surgical visit [] Trauma [] Long length of stay [] ICU visit [] Other: Relational/Emotional Strength [] Patient feels connected with others/family/visitors/staff [] Distress [] Loneliness/isolation [] Abandonment Spirituality of Patient [] Person of Nanci [] Attends Rastafarian of their Nanci [] Believes in Prayer [] Reads Bible or Yazidi materials [] There are Spiritual issues to be addressed Sanitation Worker Hosing Machinery Interventions [x] Prayer [x] Active listening [x] Non-anxious presence [x] Spiritual/emotional support [] Crisis/trauma care [] Spiritual counseling [] Bereavement support [] Provided bereavement packet [] Provided Bible/devotional materials [] Provided toy/stuffed animal, coloring book to patient or family member [] Provided Communion [] Anointing/[place] [] Salvation [x] Completed spiritual assessment [] Other: Impact on Illness or Injury [] Angry [] Fearful [] Anxious [] Often cries [] Exhaustion [] Unable to work [] Unable to attend jain [] Unable to walk/stand [] Unable to read [] Unable to drive [] Unable to eat/drink [] Unable to sleep [] Unable to be with family [] Patient intubated [] Other: Summary patient feeling much better. received stent Time spent with patient 10 min
--- NOTE | 2020-03-09 14:47 | P.PN_ITS ---
Subjective Subjective: Interval history: Patient is doing well. Any complaints of chest pain, shortness of breath or palpitations. Medications: Reviewed: Yes Vitals/I&O/Wt Last Vital Signs Temp 98.5 F 03/09/20 07:28 Pulse 79 03/09/20 07:28 Resp 21 H 03/09/20 07:28 BP 145/87 03/09/20 07:28 Pulse Ox 93 03/09/20 07:28 03/08/20 03/09/20 03/09/20 22:59 06:59 14:59 Intake Total 360 / 360.683 450 / 810.683 240 / 240 Output Total 375 / 950 Balance 360 / -214.317 75 / -139.317 240 / 240 Weight last 48 hrs Weight 215 lb Physical Exam Narrative: EXAM NARRATIVE: GENERAL: Patient is alert, awake and oriented x3. [] NECK: No jugular vein distension. [] HEENT: No cyanosis. No icterus. No pallor. [] HEART: Regular S1 and S2. No murmur, rub or gallop. [] LUNGS: Clear to auscultate bilaterally. [] ABDOMEN: Soft, nontender and nondistended. Positive bowel sounds. No guarding, rebound or tenderness. [] CENTRAL NERVOUS SYSTEM: Grossly nonfocal. [] EXTREMITIES: Lower extremities with no edema bilaterally. Pulses palpable in the lower extremities, both dorsalis pedis and posterior tibial. [] Data : 03/09/20 04:11 03/09/20 04:11 A&P Assessment and plan (1) ST elevation myocardial infarction (STEMI): Status: Acute (2) Hypertension: Status: Acute Patient had acute anterior wall ST elevation LA. He is status post successful revascularization with drug-eluting stent x1 to proximal LAD performed yesterday Continue aspirin and Plavix. ECHO showed an EF of 40-45% with wall motion abnormalities consistent with the LA High intensity statin therapy. Continue beta trudy and lisinopril Cardiac rehab referral. Patient will likely be discharged home tomorrow Attestations Medical Necessity Statement*: Care expected to cross 2 midnights. Patient is status post revascularization for acute ST elevation LA Coding Level of Care Code Acute Tire Sorter for Markos Moffett Diagnoses ST elevation myocardial infarction (STEMI) I21.3 Hypertension I10
--- NOTE | 2020-03-09 19:14 | PC.NURSE ---
Shift summary Patient had uneventful shift. Patient denies any chest pain, shortness of breath or nausea. Patient has been up ad kumar. Incision to Left groin asymptomatic. Nurse to continue to monitor.
[2020-03-09] MEDS: temazepam 15 mg Capsule PO (20:43)
[2020-03-09] MEDS: atorvastatin 40 mg Tablet 80 MG PO (20:43)
[2020-03-10 04:07] VITALS: BP 108/70; PULSE 81; RESP 20; TEMP 36.7; O2SAT 96
--- NOTE | 2020-03-10 05:28 | PC.NURSE ---
End of shift: Patient has had a uneventful shift. Patient has had no complaints of pain and denies any complaints. Patient remains alert and oriented. Vitals are stable.
--- NOTE | 2020-03-10 08:00 | PC.NURSE ---
pt a/o, sitting up on side of bed. denies and pain or discomfort. states, i feel better than i have in years. pt states, i don't know if i am going to be sent home today, but if i am then i would like to be able to leave so that i can go to the home and view my mother who the night before i came in here. provided condolences and informed pt that i would see what we could do if he was to be d/c'd today. call light with in reach. will continue to monitor and provide support and safety.
[2020-03-10] MEDS: aspirin 81 mg EC Tablet PO (08:28)
[2020-03-10] MEDS: lisinopril 10 mg Tablet PO (08:28)
[2020-03-10] MEDS: metoprolol tartrate 25 mg Tablet PO (08:28)
[2020-03-10] MEDS: clopidogrel 75 mg Tablet PO (08:28)
--- NOTE | 2020-03-10 08:51 | P.DS_ITS ---
Discharge Providers Date of Admission: 03/08/20 10:51 Date of Discharge: March 10, 2020 Attending Provider at Admission: Yahir Ansari M.D Attending Provider at Discharge: Yahir Ansari M.D Primary Care Provider: Romie Robles MD Diagnoses at Discharge Discharge Diagnosis (1) ST elevation myocardial infarction (STEMI): Status: Acute (2) Hypertension: Status: Acute Reason for Visit Reason for Visit: CHEST PAIN, PAIN DOWN R ARM Hospital Course Hospital Course: 65-year-old man with no significant past medical history and not on any medications presented to emergency room with 2 to 3 hours of chest pain. According to the patient for the last 5 days he has been having on and off chest discomfort including one episode which lasted for about 5 hours a few days ago. Patient denies smoking. EKG performed in the hospital showed ST elevations in the anterior and anterolateral leads. STEMI alert was activated and patient was emergently taken to the Information Technology Data Analyst. Patient was loaded with Plavix and heparin bolus. Cardiac cath showed thrombotic occlusion of proximal LAD and he underwent successful revascularization with drug-eluting stent x1. During hospital stay patient did well. His EKG changes resolved. His chest pain resolved and he had no more episodes of chest discomfort. Today he is in stable condition and will be discharged home. He will be on aspirin, Plavix, high intensity statin, beta-trudy and lisinopril. He will follow with our office. Physical Exam Narrative: EXAM NARRATIVE: GENERAL: Patient is alert, awake and oriented x3. [] NECK: No jugular vein distension. [] HEENT: No cyanosis. No icterus. No pallor. [] HEART: Regular S1 and S2. No murmur, rub or gallop. [] LUNGS: Clear to auscultate bilaterally. [] ABDOMEN: Soft, nontender and nondistended. Positive bowel sounds. No guarding, rebound or tenderness. [] CENTRAL NERVOUS SYSTEM: Grossly nonfocal. [] EXTREMITIES: Lower extremities with no edema bilaterally. Pulses palpable in the lower extremities, both dorsalis pedis and posterior tibial. [] Discharge Data Data Completed and Pending: Completed Studies During Hospitalization Category Date Time Status XR chest 1V edilma ble [id number] Urgent Exams 03/08/20 08:59 Completed CV echo wo/w cont rast [id number] Routine Ultrasound 03/08/20 11:18 Completed US/CV paperwork R outine Ultrasound 03/08/20 14:49 Completed Pending at discharge Category Date Time Status ARTISAN PLASTERER request for service Routin e Exams 03/08/20 09:18 Taken Vitals: Last Vital Signs Temp 98.0 F 03/10/20 04:07 Pulse 81 03/10/20 04:07 Resp 20 H 03/10/20 04:07 BP 108/70 03/10/20 04:07 Pulse Ox 96 03/10/20 04:07 Discharge Plan Discharge Patient Disposition: Home Condition: Stable Prescriptions: New atorvastatin 40 mg Tablet 80 mg PO BEDTIME Qty: 90 RF: 3 clopidogrel 75 mg Tablet 75 mg PO DAILY Qty: 90 RF: 3 aspirin 81 mg Tablet,Delayed Release (Dr/Ec) 81 mg PO DAILY Qty: 90 RF: 3 lisinopril 10 mg Tablet 10 mg PO DAILY Qty: 90 RF: 3 metoprolol tartrate 25 mg Tablet 25 mg PO BID Qty: 120 RF: 3 No Action No Known Home Medications RF: 0 Discharge Orders: Discharge Order (Routine); Ordered 03/10/20 Ordered By: Yahir Ansari Referrals: Yahir Ansari M.D [Physician] - 1 month (Please follow-up with Dr. Ansari on at 3:45p.m. If you have any questions or graciela to reschedule. Please call ) Aliyah Sapp FNP [Nurse Practitioner] - 7-10 days (Please follow-up with Aliyah Sapp on at 9:30a.m. If you have any questions or need to reschedule. Please call ) Discharge Diet: Cardiac Patient Instructions: Metoprolol (By mouth), Lisinopril (By mouth), Aspirin (By mouth), Atorvastatin (By mouth), Clopidogrel (By mouth), Myocardial Infarction (DC), Left Heart Catheterization (DC), Coronary Angioplasty (DC), Hypertension (DC), Post Angiogram Home Care Instructions Activity Restrictions/Additional Instructions: Please do not lift heavier than 5 pounds of weight for the next 5 days. Discharge Date/Time: 03/10/20 11:15 Discharge Attestations Time Spent in Discharge Care*: greater than 30 min Quality Metrics Clinical Quality Measures During this hospital stay, did patient experience: None Coding Level of Care Code Acute Cigarette Making Examiner for Chg Fwd Diagnoses ST elevation myocardial infarction (STEMI) I21.3 Hypertension I10
[2020-03-10 10:05] VITALS: BP 108/70; PULSE 81; RESP 20; TEMP 36.7; O2SAT 96
--- NOTE | 2020-03-10 11:15 | PC.NURSE ---
provide d/c instructions with discussion. pt verbalized understanding. family on hospital grounds to picking belt operator. no s/s of acute distress noted. provided card with stent information. out to pov per w/c with nurses aide.
== END 2020-03-10 11:15 | disposition home or self-care (01) | DRG 247 ==
LOC: ER 08:58 → CCL 09:17 → CSU 19:10
PROVIDERS: Nurse Practitioner Family; Admitting Provider Internal Medicine; Family Provider Family Medicine; PCP Family Medicine; Visit Provider Internal Medicine
PROC: 027034Z Dilation of Coronary Artery, One Artery with Drug-eluting Intraluminal Device, Percutaneous Approach (ICD-10-PCS; principal; 2020-03-08 09:00)
PROC: 027034Z Dilation of Coronary Artery, One Artery with Drug-eluting Intraluminal Device, Percutaneous Approach (ICD-10-PCS; 2020-03-08 09:00)
DX: I21.09 ST elevation (STEMI) myocardial infarction involving other coronary artery of anterior wall (principal); I10 Essential (primary) hypertension
CPT/HCPCS: 12345; 36415; 71045; 80048; 80053; 83880; 84484; 85025; 85610; 85730; 90471; 90732; 93005; 93458; 96375; 99283; C1725; C1753; C1769; C1874; C1887; C1894; C8929; C9600; C9606; J1200; J1644; J2250; J2270; J2405; J3010; J3246; J7030; J7040; Q9956; Q9967

== ENCOUNTER → 2020-03-17 10:50 | Outpatient (BNVA) | payer MEDICARE, BC, SELFPAY | PROVIDERS: Family Provider Family Medicine; PCP Family Medicine; Visit Provider Nurse Practitioner Family | DX: I25.10 Atherosclerotic heart disease of native coronary artery without angina pectoris (principal) | CPT/HCPCS: 80048 ==

== ENCOUNTER 2020-04-04 12:50 | Outpatient (RCR) | payer MEDICARE, BC, SELFPAY | END 2020-05-03 23:59 | disposition home or self-care (01) | LOC: CR 12:50 | PROVIDERS: Family Provider Family Medicine; PCP Family Medicine; Referring Provider Internal Medicine; Visit Provider Internal Medicine | DX: Z95.5 Presence of coronary angioplasty implant and graft (principal) | CPT/HCPCS: 93798 ==

== ENCOUNTER 2020-05-04 11:37 | Outpatient (RCR) | payer MEDICARE, BC, SELFPAY | END 2020-06-03 23:59 | disposition home or self-care (01) | LOC: CR 11:37 | PROVIDERS: Family Provider Family Medicine; PCP Family Medicine; Referring Provider Internal Medicine; Visit Provider Internal Medicine | DX: Z95.5 Presence of coronary angioplasty implant and graft (principal) | CPT/HCPCS: 93798 ==

== ENCOUNTER 2020-06-07 10:48 | Outpatient (RCR) | payer MEDICARE, BC, SELFPAY | END 2020-07-04 23:59 | disposition home or self-care (01) | LOC: CR 10:48 | PROVIDERS: Family Provider Family Medicine; PCP Family Medicine; Referring Provider Internal Medicine; Visit Provider Internal Medicine | DX: Z95.5 Presence of coronary angioplasty implant and graft (principal) | CPT/HCPCS: 93798 ==

== ENCOUNTER 2020-07-06 09:58 | Outpatient (RCR) | payer MEDICARE, BC, SELFPAY | END 2020-08-01 23:59 | disposition home or self-care (01) | LOC: CR 09:58 | PROVIDERS: Family Provider Family Medicine; PCP Family Medicine; Referring Provider Internal Medicine; Visit Provider Internal Medicine | DX: Z95.5 Presence of coronary angioplasty implant and graft (principal) | CPT/HCPCS: 93798 ==

== ENCOUNTER 2020-08-05 08:43 | Outpatient (RCR) | payer SELFPAY | END 2020-09-01 23:59 | disposition home or self-care (01) | LOC: CR 08:43 | PROVIDERS: Family Provider Family Medicine; PCP Family Medicine; Referring Provider Internal Medicine; Visit Provider Internal Medicine | DX: Z95.5 Presence of coronary angioplasty implant and graft (principal) ==

== ENCOUNTER 2020-10-04 09:00 | Outpatient (RCR) | payer SELFPAY | END 2020-11-01 23:59 | disposition home or self-care (01) | LOC: CR 09:00 | PROVIDERS: Family Provider Family Medicine; PCP Family Medicine; Referring Provider Internal Medicine; Visit Provider Internal Medicine | DX: Z95.5 Presence of coronary angioplasty implant and graft (principal) ==

== ENCOUNTER → 2020-10-08 10:31 | Outpatient (BNVA) | payer MEDICARE, BC, SELFPAY | PROVIDERS: Family Provider Family Medicine; PCP Family Medicine; Visit Provider Internal Medicine | DX: I25.119 Atherosclerotic heart disease of native coronary artery with unspecified angina pectoris (principal); E78.5 Hyperlipidemia, unspecified | CPT/HCPCS: 80061 ==

== ENCOUNTER → 2021-10-07 09:23 | Outpatient (BNVA) | payer MEDICARE, BC, SELFPAY | PROVIDERS: Family Provider Family Medicine; PCP Family Medicine; Visit Provider Internal Medicine | DX: I25.119 Atherosclerotic heart disease of native coronary artery with unspecified angina pectoris (principal); E78.5 Hyperlipidemia, unspecified; I10 Essential (primary) hypertension | CPT/HCPCS: 99214 ==

== ENCOUNTER 2021-10-10 10:59 | Outpatient (CLI) | payer MEDICARE, BC, SELFPAY ==
[2021-10-10 12:30] LABS: Anion Gap 15.5 (5-19); Blood Urea Nitrogen 19 mg/dL (8-23); Calcium 9.8 mg/dL (8.5-10.5); Carbon Dioxide 24 mmol/L (22-29); Chloride 105 mmol/L (98-107); Chol HDL Ratio 4.13 mg/dL (1.0-5.00); Cholesterol 124 mg/dL (0-200); Glomerular Filtration Rate 84.2 mL/min (90-130); Glucose 95 mg/dL (65-115); HDL Cholesterol 30 mg/dL (60-100); LDL Cholesterol Calculated 74 mg/dL (50-129); LDL HDL Ratio 2.47 RATIO (0.00-3.22); NT Pro B Type Natriuretic Pept 72 pg/mL (0-125); Osmolality Calculated 292 mOsm/kg (285-295); Potassium 4.5 mmol/L (3.5-5.1); Sodium 140 mmol/L (136-145); Triglycerides 100 mg/dL (0-150)
== END 2021-10-10 11:00 | disposition home or self-care (01) ==
PROVIDERS: PCP Family Medicine; Visit Provider Internal Medicine
DX: I25.10 Atherosclerotic heart disease of native coronary artery without angina pectoris (principal); E78.5 Hyperlipidemia, unspecified; I10 Essential (primary) hypertension
CPT/HCPCS: 80048; 80061; 83880

== ENCOUNTER → 2022-06-13 11:43 | Outpatient (BNVA) | payer MEDICARE, BC, SELFPAY | PROVIDERS: PCP Family Medicine; Visit Provider Internal Medicine Cardiovascular Disease | DX: I25.119 Atherosclerotic heart disease of native coronary artery with unspecified angina pectoris (principal); E78.5 Hyperlipidemia, unspecified; I10 Essential (primary) hypertension | CPT/HCPCS: 99213 ==

== ENCOUNTER → 2023-01-03 15:22 | Outpatient (BNVA) | payer MEDICARE, BC, SELFPAY | PROVIDERS: PCP Family Medicine; Visit Provider Internal Medicine | DX: I10 Essential (primary) hypertension (principal); I25.119 Atherosclerotic heart disease of native coronary artery with unspecified angina pectoris; E78.5 Hyperlipidemia, unspecified | CPT/HCPCS: 99214 ==

== ENCOUNTER 2023-03-29 08:47 | Outpatient (CLI) | payer MEDICARE, BC, SELFPAY ==
[2023-03-29 09:29] VITALS: BMI 34.4
--- NOTE | 2023-03-29 09:31 | NMCV_ITS ---
NM payton perf SPECT r/s* [id number] Thiago Perez Age: 68 Gender: M : 1955 Exam Date: 03/29/2023 10:14 Ordering Phys: Romie Robles MD Technologist: MARGARITA Quevedo Exam Location: [facility] Indications: ATHEROSCLEROTIC HEART DISEASE STRESS TEST Please see separate stress test report in [facility] for full findings IMAGE PROTOCOL Rest/Stress 1 Lexiscan Day Radiopharmaceutical Dose (mCi) Administration Site Administered by Rest: Tc-99m 11.0 IV Tosha Rhoades PLANT MANAGER Sestamibi Stress:Tc-99m 32.4 IV Tosha Rhoades, PLANT MANAGER Sestamibi Rest: 29-Mar-2023 60 Discovery 630 Stress: 29-Mar-2023 30 Discovery 630 0.4mg Lexiscan. Images obtained in supine and prone position. SPECT RESULTS Technical Quality: Excellent Raw Data Analysis: Normal Image Corrections: No attenuation or motion correction applied Summed Stress Score: 4 Summed Rest Score: 5 Summed Difference Score: 0 PERFUSION FINDINGS Small size perfusion abnormality of mild severity of apical inferior, apical septal and apical irving on rest and stress images. FUNCTIONAL RESULTS (calculated via Gated SPECT) Stress Image LV EF (%): 68 Stress EDV (mL):85 TID: 1.02 Stress ESV (mL):27 FUNCTIONAL FINDINGS: The left ventricle is normal in size. Transient Ischemia Dilatation of 1. The left ventricular ejection fraction is normal with a value of 68%. There is normal left ventricular wall thickening. Normal end-diastolic end-systolic volumes. IMPRESSIONS 1. Small sized fixed perfusion abnormality of mild severity of apical inferior, apical septal and apical irving. 2. This may present old myocardial infarction in left anterior descending artery territory with no coronary ischemia. 3. EKG portion of the study will be reported separately. 4. No coronary ischemia based on the study. Maureen Cabrera MD (Electronically Signed) Final Date: 05 April 2023 16:13 S
--- NOTE | 2023-03-29 09:31 | ECG_ITS ---
[facility] Test Date: 2023-03-29 Pat Name: Thiago Perez Department: Room: Gender: Male Materials Technician: Tasneem Ascencio : 1955 Requested By: Romie Marin Order Number: [id number] Jarred MD: Maureen Cabrera M.D. Interpretive Statements NAME OF STUDY: LEXISCAN SESTAMIBI STRESS TEST INDICATION: [Stable Angina ] PROCEDURE: At the baseline, the blood pressure was 153/75 mm Hg with a heart rate of 61 bpm. The electrocardiogram showed sinus rhythm, normal axis with normal ST and T's. ??? The Lexiscan was infused over a period of 20 seconds. A total of 0.4 milligrams of Lexiscan was infused. The stress phase was continued for a total of 5 minutes. Heart rate at the end of the stress phase was 81 bpm with a blood pressure of 110/71 mm Hg. The EKG at the peak infusion revealed sinus rhythm with no significant ST-T wave chnages. ??? Sestamibi was injected 20 seconds after the Lexiscan infusion. ??? Blood pressure at the end of the recovery phase was 113/69 mm Hg with a heart rate of 77 beats per minute. ??? CONCLUSION: 1. No significant EKG changes with the LexiScan infusion. 2. No LexiScan induced chest pain or cardiac arrhythmia. 3. Normal blood pressure and heart rate response. 4. Sestamibi/sestamibi perfusion scan pending; see separate report. Electronically Signed On 04-14-2023 14:22:46 OIL FIELD PIPELINE SUPERVISOR by Maureen Cabrera M.D. [id number]
[2023-03-29] MEDS: regadenoson 0.4 Mg/5 ml Syringe IVP (10:49)
[2023-03-29 11:00] VITALS: BP 113/69; PULSE 81
== END 2023-03-29 08:48 | disposition home or self-care (01) ==
LOC: CDL 08:49
PROVIDERS: PCP Family Medicine; Visit Provider Family Medicine
DX: I25.118 Atherosclerotic heart disease of native coronary artery with other forms of angina pectoris (principal); R93.1 Abnormal findings on diagnostic imaging of heart and coronary circulation
CPT/HCPCS: 36415; 78452; 93017; 96374; A9500; J2785

== ENCOUNTER → 2023-07-12 14:45 | Outpatient (BNVA) | payer MEDICARE, BC, SELFPAY | PROVIDERS: PCP Family Medicine; Visit Provider Internal Medicine | DX: I10 Essential (primary) hypertension (principal); I25.119 Atherosclerotic heart disease of native coronary artery with unspecified angina pectoris; E78.5 Hyperlipidemia, unspecified | CPT/HCPCS: 99214 ==

== ENCOUNTER → 2024-01-17 14:41 | Outpatient (BNVA) | payer MEDICARE, BC, SELFPAY | PROVIDERS: PCP Family Medicine; Visit Provider Internal Medicine | DX: I10 Essential (primary) hypertension (principal); I25.119 Atherosclerotic heart disease of native coronary artery with unspecified angina pectoris; E78.5 Hyperlipidemia, unspecified | CPT/HCPCS: 99213 ==

== ENCOUNTER → 2024-10-16 15:37 | Outpatient (BNVA) | payer MEDICARE, BC, SELFPAY | PROVIDERS: PCP Family Medicine; Visit Provider Internal Medicine | DX: I10 Essential (primary) hypertension (principal); E78.5 Hyperlipidemia, unspecified; I25.10 Atherosclerotic heart disease of native coronary artery without angina pectoris | CPT/HCPCS: 99214 ==

== ENCOUNTER 2024-10-23 08:43 | Outpatient (CLI) | payer MEDICARE, BC, SELFPAY ==
[2024-10-23 09:30] LABS: Alanine Aminotransferase 19 U/L (0-41); Albumin Level 3.9 g/dL (3.5-5.2); Alkaline Phosphatase 86 U/L (40-130); Anion Gap 16.6 (5-19); Aspartate Amino Transferase 22 U/L (0-40); Blood Urea Nitrogen 15 mg/dL (8-23); Calcium 8.9 mg/dL (8.5-10.5); Carbon Dioxide 22 mmol/L (22-29); Chloride 106 mmol/L (98-107); Chol HDL Ratio 3.67 mg/dL (1.0-5.00); Cholesterol 110 mg/dL (0-200); Globulin 2.7 g/dL (1.3-4.6); Glomerular Filtration Rate 73.9 mL/min (90-130); Glucose 105 mg/dL (65-115); HDL Cholesterol 30 mg/dL (60-100); LDL Cholesterol Calculated 59 mg/dL (50-129); LDL HDL Ratio 1.97 RATIO (0.00-3.22); Osmolality Calculated 291 mOsm/kg (285-295); Potassium 4.6 mmol/L (3.5-5.1); Sodium 140 mmol/L (136-145); Total Bilirubin 0.8 mg/dL (0.15-1.2); Total Protein 6.6 g/dL (6.6-8.7); Triglycerides 103 mg/dL (0-150)
== END 2024-10-23 08:44 | disposition home or self-care (01) ==
PROVIDERS: PCP Family Medicine; Visit Provider Internal Medicine
DX: I10 Essential (primary) hypertension (principal); E78.5 Hyperlipidemia, unspecified; I25.119 Atherosclerotic heart disease of native coronary artery with unspecified angina pectoris
CPT/HCPCS: 36415; 80053; 80061

== ENCOUNTER 2024-11-27 06:01 | Outpatient (CLI) | payer MEDICARE, BC, SELFPAY ==
--- NOTE | 2024-11-27 06:15 | USCV_ITS ---
Thiago Perez Age: 69 Gender: M : 1955 Exam Date: 11/27/2024 06:43 Ordering Phys: Yahir Ansari M.D ([email or web address]) Technologist: Exam Location: [facility] [place] Indication: cp sob BP: 172 / 73 HR: 58 Rhythm: Sinus Technical Quality: Adequate MEASUREMENTS (Male / Female) Normal Values 2D ECHO LV Diastolic Diameter PLAX 4.9 cm 4.2 - 5.9 / 3.9 - 5.3 cm IVS Diastolic Thickness 1.1 cm 0.6 - 1.0 / 0.6 - 0.9 cm IVS Systolic Thickness 1.8 cm LVPW Diastolic Thickness 1.1 cm 0.6 - 1.0 / 0.6 - 0.9 cm LVPW Systolic Thickness 1.4 cm LVOT Diameter 2.4 cm LV Ejection Fraction 2D Teich 70.3 % LV Ejection Fraction MOD 4C 70.5 % LV Ejection Fraction MOD 2C 48.0 % LV Ejection Fraction 2C AL 48.7 % LA Diameter 3.4 cm RA Systolic Volume 4C AL 46.7 ml RA Systolic Volume 4C MOD 45.2 ml Aorta at Sinotubular Diameter 2.3 cm IVC Diameter 2.2 cm M-MODE LA Ao Ratio MM 1.3 AV Cusp Separation MM 1.9 cm DOPPLER AV Peak Velocity 149.0 cm/s LVOT Peak Velocity 75.0 cm/s AV Area Cont Eq vti 3.3 cm squared AV Area Cont Eq pk 2.3 cm squared MV Area PHT 3.9 cm squared Mitral E to A Ratio 1.0 TV Peak Velocity 184.5 cm/s TR Peak Velocity 190.0 cm/s TR Peak Gradient 14.4 mmHg TV Peak E Velocity 68.0 cm/s PV Peak Velocity 124.0 cm/s FINDINGS Left Ventricle Left ventricle is normal in size. LV systolic function is mildly reduced with EF of 45-50%. Mild global hypokinesis. Right Ventricle Normal in size and function Right Atrium Normal in size Left Atrium Normal in size Mitral Valve Mild mitral annular calcification. Mild mitral regurgitation Aortic Valve Structurally normal aortic valve. No significant stenosis or regurgitation. Tricuspid Valve Insufficient TR jet to calculate RVSP. Pulmonic Valve Not well visualized Pericardium Normal Aorta Normal in size IVC Appears to be normal CONCLUSIONS LV systolic function is mildly reduced with EF of 45 to 50%. Mild mitral regurgitation. No significant changes from prior echo performed in 2019. Yahir Ansari MD (Electronically Signed) Final Date: 12 December 2024 11:15 S
== END 2024-11-27 06:02 | disposition home or self-care (01) ==
PROVIDERS: PCP Family Medicine; Visit Provider Internal Medicine
DX: R06.02 Shortness of breath (principal); I51.89 Other ill-defined heart diseases; I34.81 Nonrheumatic mitral (valve) annulus calcification; I34.0 Nonrheumatic mitral (valve) insufficiency
CPT/HCPCS: 93306